=== PATIENT | male | born 1975 | race Caucasian/White ===

== ENCOUNTER 2017-08-10 09:09 | Observation (INO) | payer OTHER ==
[~2017-08-10] VITALS: Ht 175.3 cm; Wt 75.0 kg
[2017-08-10] VITALS (7 sets, daily range): BP systolic 111–159; BP diastolic 58–94; PULSE 64–81; RESP 16–18; TEMP 97.7–98.5; O2SAT 98–100
--- NOTE | 2017-08-10 09:59 | PD ---
HPI Chief Complaint: Eye Problems/Injury Time Seen by Provider: 09:30 Travel History International Travel<30 days: No Contact w/Intl Traveler<30days: No Traveled to known affect area: No History of Present Illness HPI 42-year-old male patient presents to the ER today for sudden left eye vision loss that had a curtain-like distribution that went down in the left eye and then a few minutes later reversed its course. He states that his physician is back to normal now but he does feel a little pressure in the left eye. He denies any eye pain, discharge, headaches, chest pains, shortness of breath, or any other issues. Modifying Factors: None Associated Signs & Symptoms: Painless, Left eye vision loss Risk Factors: None PFSH Past Medical History Medical History: Denies Significant Hx Tetanus Vaccination: Unknown Influenza Vaccination: No Past Surgical History Surgical History: No Previous Surgery Social History Alcohol Use: Yes Tobacco Use: Yes Substance Use: No Allergies-Medications (Allergen,Severity, Reaction): Coded Allergies: No Known Allergies (Unverified , 08/10/17) Reported Meds & Prescriptions Reported Meds & Active Scripts Active No Active Prescriptions or Reported Medications Review of Systems Except as stated in HPI: all other systems reviewed are Neg Physical Exam Narrative GENERAL: Pleasant well-developed middle age white male patient currently in no acute distress. Awake and oriented 3. SKIN: Focused skin assessment warm/dry. HEAD: Atraumatic. Normocephalic. EYES: Pupils equal and round. No scleral icterus. No injection or drainage. ENT: No nasal bleeding or discharge. Mucous membranes pink and moist. NECK: Trachea midline. No JVD. CARDIOVASCULAR: Regular rate and rhythm. No murmur appreciated. RESPIRATORY: No accessory muscle use. Clear to auscultation. Breath sounds equal bilaterally. GASTROINTESTINAL: Abdomen soft, non-tender, nondistended. Hepatic and splenic margins not palpable. MUSCULOSKELETAL: No obvious deformities. No clubbing. No cyanosis. No edema. NEUROLOGICAL: Awake and alert. No obvious cranial nerve deficits. Motor grossly within normal limits. Normal speech. No pronator drift. PSYCHIATRIC: Appropriate mood and affect; insight and judgment normal. Data Data Last Documented VS Vital Signs Date Time Temp Pulse Resp B/P (MAP) Pulse Ox O2 Delivery O2 Flow Rate FiO2 08/10/17 09:31 18 08/10/17 09:11 98.1 81 159/94 (115) 98 Orders Orders Fluorescein Strip ([id number]-J-Lijbvk A.T.) (08/10/17 10:00) Proparacaine 0.5% Opth Soln (Alcaine 0.5 (08/10/17 10:00) Electrocardiogram (08/10/17 10:00) Prothrombin Time / Inr (Pt) (08/10/17 10:00) Act Partial Throm Time (Ptt) (08/10/17 10:00) Complete Blood Count With Diff (08/10/17 10:00) Comprehensive Metabolic Panel (08/10/17 10:00) Ecg Monitoring (08/10/17 10:00) Iv Access Insert/Monitor (08/10/17 10:00) Oximetry (08/10/17 10:00) Sodium Chloride 0.9% Flush (Ns Flush) (08/10/17 10:00) C-Reactive Protein (Crp) (08/10/17 10:00) Westergren Sedimentation Rate (08/10/17 10:00) Ct Brain W/O Iv Contrast(Rout) (08/10/17 11:48) Admit Order (Ed Use Only) (08/10/17 11:48) Labs Laboratory Tests Test 08/10/17 10:20 White Blood Count 8.9 TH/MM3 Red Blood Count 4.81 MIL/MM3 Hemoglobin 15.1 GM/DL Hematocrit 43.7 % Mean Corpuscular Volume 90.8 FL Mean Corpuscular Hemoglobin 31.4 PG Mean Corpuscular Hemoglobin Concent 34.6 % Red Cell Distribution Width 13.5 % Platelet Count 233 TH/MM3 Mean Platelet Volume 7.2 FL Neutrophils (%) (Auto) 65.0 % Lymphocytes (%) (Auto) 25.4 % Monocytes (%) (Auto) 6.9 % Eosinophils (%) (Auto) 2.0 % Basophils (%) (Auto) 0.7 % Neutrophils # (Auto) 5.8 TH/MM3 Lymphocytes # (Auto) 2.3 TH/MM3 Monocytes # (Auto) 0.6 TH/MM3 Eosinophils # (Auto) 0.2 TH/MM3 Basophils # (Auto) 0.1 TH/MM3 CBC Comment DIFF FINAL Differential Comment Erythrocyte Sedimentation Rate 5 mm/hr Prothrombin Time 10.3 SEC Prothromb Time International Ratio 1.0 RATIO Activated Partial Thromboplast Time 24.7 SEC Blood Urea Nitrogen 15 MG/DL Creatinine 0.85 MG/DL Random Glucose 90 MG/DL Total Protein 8.0 GM/DL Albumin 4.3 GM/DL Calcium Level 9.3 MG/DL Alkaline Phosphatase 78 U/L Aspartate Amino Transf (AST/SGOT) 30 U/L Alanine Aminotransferase (ALT/SGPT) 47 U/L Total Bilirubin 0.3 MG/DL Sodium Level 139 MEQ/L Potassium Level 4.1 MEQ/L Chloride Level 107 MEQ/L Carbon Dioxide Level 26.5 MEQ/L Anion Gap 6 MEQ/L Estimat Glomerular Filtration Rate 100 ML/MIN C-Reactive Protein LESS THAN 0.29 MG/DL MDM Medical Decision Making Medical Screen Exam Complete: Yes Emergency Medical Condition: Yes Medical Record Reviewed: Yes Interpretation(s) EKG shows NSR, no ST elevation or depression, and no arrhythmias. No significant T-wave inversions. Laboratory Tests Test 08/10/17 10:20 Differential Diagnosis Painless left eye vision loss: Amaurosis fugax versus retinal bleeding Narrative Course EKG shows normal sinus rhythm. Lab work is otherwise unremarkable. Patient's vision is back to normal now. However, vision changes are concerning for amaurosis fugax and my plan would be to admit him for further evaluation. Case was discussed with Dr. Mayorga for admission. Diagnosis Primary Impression: Amaurosis fugax of left eye Admitting Information Admitting Physician Requests: Admit Scripts No Active Prescriptions or Reported Meds Christin Mora MD Aug 10, 2017 09:59
[2017-08-10] MEDS ORDERED: SODIUM CHLORIDE 0.9% FLUSH 10 ML FLUSH IVF PRN (10:00)
[2017-08-10] MEDS ORDERED: PROPARACAINE HCL 0.5% OPHT SOLN 15 ML BTL LEFT EYE ONE (10:00)
[2017-08-10] MEDS ORDERED: FLUORESCEIN SOD 1 MG STRIP LEFT EYE ONE (10:00)
[2017-08-10 10:35] LABS: AUTOMATED NEUTROPHIL # 5.8 TH/MM3 (1.8-7.7); BASOPHIL # 0.1 TH/MM3 (0-0.2); BASOPHIL % 0.7 % (0.0-2.0); EOSINOPHIL # 0.2 TH/MM3 (0-0.4); HEMATOCRIT 43.7 % (39.0-51.0); HEMOGLOBIN 15.1 GM/DL (13.0-17.0); LYMPH % 25.4 % (9.0-44.0); LYMPHOCYTE # 2.3 TH/MM3 (1.0-4.8); MEAN CELL VOLUME 90.8 FL (80.0-100.0); MEAN CORPUSCULAR HEMOGLOBIN 31.4 PG (27.0-34.0); MEAN CORPUSCULAR HGB CONC 34.6 % (32.0-36.0); MEAN PLATELET VOLUME 7.2 FL (7.0-11.0); MONO % 6.9 % (0.0-8.0); MONOCYTE # 0.6 TH/MM3 (0-0.9); PLATELET COUNT 233 TH/MM3 (150-450); RED BLOOD COUNT 4.81 MIL/MM3 (4.50-5.90); RED CELL DISTRIBUTION WIDTH 13.5 % (11.6-17.2); WHITE BLOOD COUNT 8.9 TH/MM3 (4.0-11.0)
[2017-08-10 10:44] LABS: PROTHROMBIN TIME - PATIENT 10.3 SEC (9.8-11.6)
[2017-08-10 10:50] LABS: ALBUMIN 4.3 GM/DL (3.4-5.0); ALT (GPT) 47 U/L (12-78); AST (GOT) 30 U/L (15-37); BICARBONATE 26.5 MEQ/L (21.0-32.0); BLOOD UREA NITROGEN 15 MG/DL (7-18); C-REACTIVE PROTEIN LESS THAN 0.29 MG/DL (0.00-0.30); CALCIUM 9.3 MG/DL (8.5-10.1); CHLORIDE 107 MEQ/L (98-107); CREATININE 0.85 MG/DL (0.60-1.30); GLOMERULAR FILTRATION RATE 100 ML/MIN (>89); GLUCOSE,RANDOM 90 MG/DL (74-106); SODIUM (NA) 139 MEQ/L (136-145)
[2017-08-10 10:54] LABS: ALKALINE PHOSPHATASE 78 U/L (45-117); TOTAL BILIRUBIN ADULT 0.3 MG/DL (0.2-1.0)
--- NOTE | 2017-08-10 12:27 | RADRPT ---
EXAM DATE/TIME: 08/10/2017 12:01 [facility] COMPARISON: No previous studies available for comparison. INDICATIONS : Episode of vision loss in left eye today. RADIATION DOSE: 56.77 CTDIvol (mGy) MEDICAL HISTORY : None SURGICAL HISTORY : None. ENCOUNTER: Initial ACUITY: 1 day PAIN SCALE: 6/10 LOCATION: Bilateral head TECHNIQUE: Multiple contiguous axial images were obtained of the head. Using automated exposure control and adj ustment of the mA and/or kV according to patient size, radiation dose was kept as low as reasonably a chievable to obtain optimal diagnostic quality images. DICOM format image data is available electro nically for review and comparison. FINDINGS: CEREBRUM: The ventricles are normal for age. No evidence of midline shift, mass lesion, hemorrhage or acute in farction. No extra-axial fluid collections are seen. POSTERIOR FOSSA: The cerebellum and brainstem are intact. The 4th ventricle is midline. The cerebellopontine angle i s unremarkable. EXTRACRANIAL: The visualized portion of the orbits is intact. SKULL: The calvaria is intact. No evidence of skull fracture. CONCLUSION: Negative for acute process. Marcin Arshad MD FACR on August 10, 2017 at 12:20 Board Certified Radiologist. This report was verified electronically.
[2017-08-10] MEDS ORDERED: NALOXONE HCL 0.4 MG/ML AMP IV PUSH PRN (15:45)
[2017-08-10] MEDS ORDERED: BISACODYL 10 MG SUPP RECTAL PRN (15:45)
[2017-08-10] MEDS ORDERED: MORPHINE SULFATE 2 MG/ML INJ IV PUSH PRN ×2 (15:45)
[2017-08-10] MEDS ORDERED: ENALAPRILAT 1.25 MG/ML VIAL IV PUSH PRN (15:45)
[2017-08-10] MEDS ORDERED: SENNOSIDES 8.6 MG TAB PO PRN (15:45)
[2017-08-10] MEDS ORDERED: ACETAMINOPHEN/HYDROcodone 325 MG/5 MG TAB PO PRN (15:45)
[2017-08-10] MEDS ORDERED: DEXTROSE 50% IN WATER 50 ML VIAL(D50) IV PUSH PRN (15:45)
[2017-08-10] MEDS ORDERED: ACETAMINOPHEN 325 MG TAB PO PRN ×2 (15:45)
[2017-08-10] MEDS ORDERED: ACETAMINOPHEN/HYDROcodone 325 MG/10 MG TAB PO PRN (15:45)
[2017-08-10] MEDS ORDERED: SODIUM CHLORIDE 0.9% FLUSH 10 ML FLUSH IV FLUSH PRN ×2 (15:45)
[2017-08-10] MEDS ORDERED: METOCLOPRAMIDE HCL 10 MG/2 ML VIAL IV PUSH PRN (15:45)
[2017-08-10] MEDS ORDERED: LACTULOSE SYRUP 20 GM/30 ML CUP PO PRN (15:45)
[2017-08-10] MEDS ORDERED: MAGNESIUM HYDROXIDE SUSP 30 ML CUP PO PRN (15:45)
[2017-08-10] MEDS ORDERED: GLUCAGON 1 MG/ML VIAL OTHER PRN (15:45)
[2017-08-10] MEDS ORDERED: ONDANSETRON HCL 4 MG/2 ML VIAL IVP PRN (15:45)
[2017-08-10] MEDS ORDERED: NICOTINE 14 MG/24 HR PATCH T-DERMAL ONE (16:30)
[2017-08-10] MEDS: INSULIN ASPART SUPPLEMENTAL SCALE SQ SCH ×2 (16:51→20:25)
[2017-08-10] MEDS: ASPIRIN 81 MG CHEW TAB PO SCH (16:51)
--- NOTE | 2017-08-10 16:52 | EKG ---
Date Performed: 08/10/2017 Time Performed: 10:12:24 PTAGE: 42 years EKG: Sinus rhythm POSSIBLE RIGHT VENTRICULAR CONDUCTION DELAY BORDERLINE ECG NO PREVIOUS TRACING DOCTOR: Marjan Holloway Interpretating Date/Time 08/10/2017 16:51:23
--- NOTE | 2017-08-10 16:53 | RADRPT ---
EXAM DATE/TIME: 08/10/2017 16:10 [facility] COMPARISON: No previous studies available for comparison. INDICATIONS : Left eye vision loss, resolved. MEDICAL HISTORY : None. SURGICAL HISTORY : None. ENCOUNTER: Initial ACUITY: 1 day PAIN SCORE: 0/10 LOCATION: cranial Please note a normal MRA of the brain does not entirely exclude the possibility of a small aneurysm, nor the possibility of distal intracranial vessel disease. TECHNIQUE: 3D time of flight MRA was performed. Source images, multiplanar STS MIP, and 3D volume MIP reconstru ctions were reviewed. FINDINGS: There is excellent visualization of the major intracranial arteries out to the second-order branch ve ssels. There is no evidence for aneurysm, vessel truncation or stenosis, and no evidence for vascula r malformation. CONCLUSION: Brain MRA within normal limits. Thomas Saenz MD on August 10, 2017 at 16:51 Board Certified Radiologist. This report was verified electronically.
[2017-08-10] MEDS ORDERED: ENOXAPARIN SODIUM 40 MG/0.4 ML SYRINGE SQ SCH (17:00)
--- NOTE | 2017-08-10 17:12 | HHI.HP ---
HPI Service [facility] Hospitalists Primary Care Physician No Primary Care Physician Admission Diagnosis left eye vision loss/amaurosis fugax Diagnoses: Chief Complaint: Vision loss left eye Travel History International Travel<30 Days: No Contact w/Intl Traveler <30 Da: No Traveled to Known Affected Are: No History of Present Illness This is a 42-year-old male without a significant past medical history who presents to [facility] ED with complaints of sudden visual loss in the left eye occurred earlier today while he was sitting on the toilet having a bowel movement. Patient describes it as a dark curtain like fog that started on the inner aspect of the left eye moving across to the outside of the eye and then resolved in the opposite direction about 45 seconds to a minute later. Patient denies any other associated symptoms. He denies any headache, slurred speech, dizziness, lightheadedness, palpitations, numbness/tingling, weakness, nausea, vomiting, chest pain or shortness of breath. His vision has remained normal and he just feels a little pressure on the inside corner of the left eye. He has never had an episode like this before. He denies any recent illness. He denies any drug use. He admits to tobacco use up to 2 packs per day. His only other complaint is some mild right-sided back pain that he thinks is due to lifting something incorrectly a few days ago. He is refusing a nicotine patch. Review of Systems Constitutional: DENIES: Diaphoretic episodes, Fatigue, Fever, Weight gain, Weight loss, Chills, Dizziness, Change in appetite Endocrine: DENIES: Heat/cold intolerance, Polydipsia, Polyuria, Polyphagia Eyes: COMPLAINS OF: Vision loss (left eye had an amaurosis fugax), DENIES: Blurred vision, Diplopia, Eye inflammation, Eye pain Ears, nose, mouth, throat: DENIES: Tinnitus, Hearing loss, Vertigo, Odynophagia Respiratory: DENIES: Apneas, Cough, Snoring Cardiovascular: DENIES: Chest pain, Palpitations Gastrointestinal: DENIES: Abdominal pain, Black stools Genitourinary: DENIES: Sexual dysfunction, Urinary frequency Musculoskeletal: DENIES: Joint pain, Muscle aches, Stiffness Integumentary: DENIES: Abnormal pigmentation, Nail changes Hematologic/lymphatic: DENIES: Bruising, Lymphadenopathy Immunologic/allergic: DENIES: Eczema, Urticaria Neurologic: DENIES: Abnormal gait, Headache, Localized weakness Psychiatric: DENIES: Anxiety, Confusion, Mood changes, Depression Except as stated in HPI: all other systems reviewed are Neg Past Family Social History Past Medical History Patient denies any past medical history Past Surgical History Patient denies any previous surgical history Reported Medications Patient does not take any medications at home Allergies: Coded Allergies: No Known Allergies (Unverified , 08/10/17) Active Ordered Medications Current Medications Medications (Trade) Dose Ordered Sig/Lara Route Start Time Stop Time Status Last Admin (NS Flush) 2 ml UNSCH PRN IV FLUSH 08/10/17 15:45 (NS Flush) 2 ml BID IV FLUSH 08/10/17 21:00 (Tylenol) 650 mg Q4H PRN PO 08/10/17 15:45 (Zofran Inj) 4 mg Q6H PRN IVP 08/10/17 15:45 (Reglan Inj) 5 mg Q6H PRN IV PUSH 08/10/17 15:45 (Lovenox Inj) 40 mg Q24H SQ 08/10/17 17:00 (Tylenol) 650 mg Q6H PRN PO 08/10/17 15:45 ([place] 5-325 Mg) 1 tab Q4H PRN PO 08/10/17 15:45 ([place] 10-325 Mg) 1 tab Q4H PRN PO 08/10/17 15:45 (Morphine Inj) 2 mg Q3H PRN IV PUSH 08/10/17 15:45 (Morphine Inj) 4 mg Q3H PRN IV PUSH 08/10/17 15:45 (Narcan Inj) 0.4 mg UNSCH PRN IV PUSH 08/10/17 15:45 (Jovita-Colace) 1 tab BID PO 08/10/17 21:00 (Milk Of Magnesia Liq) 30 ml Q12H PRN PO 08/10/17 15:45 (Senokot) 17.2 mg Q12H PRN PO 08/10/17 15:45 (Dulcolax Supp) 10 mg DAILY PRN RECTAL 08/10/17 15:45 (Lactulose Liq) 30 ml DAILY PRN PO 08/10/17 15:45 (Vasotec Inj) 1.25 mg Q4H PRN IV PUSH 08/10/17 15:45 (Aspirin Chew) 81 mg DAILY PO 08/10/17 16:00 (Lipitor) 10 mg HS PO 08/10/17 21:00 (NovoLOG SUPPLEMENTAL SCALE) 1 ACHS SQ 08/10/17 17:00 (D50w (Vial) Inj) 50 ml UNSCH PRN IV PUSH 08/10/17 15:45 (Glucagon Inj) 1 mg UNSCH PRN OTHER 08/10/17 15:45 (Habitrol 14 Mg Patch.24 Hr) 1 patch DAILY T-DERMAL 08/11/17 09:00 Miscellaneous Information 1 DAILY T-DERMAL 08/11/17 09:00 Family History Father, depression, suicide Social History He smokes up to 2 packs of cigarettes per day. He reports alcohol consumption of 6-12 beers one week out of the month. He denies any illicit drug use. 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 He is and lives with his . Physical Exam Vital Signs Vital Signs Date Time Temp Pulse Resp B/P (MAP) Pulse Ox O2 Delivery O2 Flow Rate FiO2 08/10/17 12:41 75 18 130/74 (92) 100 Room Air 08/10/17 12:41 75 18 130/74 (92) 100 Room Air 08/10/17 09:31 18 08/10/17 09:11 98.1 81 16 159/94 (115) 98 Physical Exam GENERAL: This is a well-nourished, well-developed patient, in no apparent distress. Awake and alert. Appears comfortable. Family is at the bedside. SKIN: No rashes, ecchymoses or lesions. Cool and dry. HEAD: Atraumatic. Normocephalic. No temporal or scalp tenderness. EYES: Pupils equal round and reactive. Extraocular motions intact. No scleral icterus. No injection or drainage. ENT: Nose without bleeding or purulent drainage. Throat without erythema, tonsillar hypertrophy or exudate. Uvula midline. Airway patent. NECK: Trachea midline. No lymphadenopathy. Supple, nontender, no meningeal signs. CARDIOVASCULAR: Regular rate and rhythm without murmurs, gallops, or rubs. S1 and S2 no S3 or S4 RESPIRATORY: Clear to auscultation. Breath sounds equal bilaterally. No wheezes , rales, or rhonchi. GASTROINTESTINAL: Abdomen soft, non-tender, nondistended. No hepato-splenomegaly , or palpable masses. No guarding. MUSCULOSKELETAL: Extremities without clubbing, cyanosis, or edema. No joint tenderness, effusion, or edema noted. No calf tenderness. NEUROLOGICAL: Awake and alert. Cranial nerves II through XII grossly intact. Motor and sensory grossly within normal limits. Five out of 5 muscle strength in all muscle groups. Normal speech. PSYCHIATRIC: Appropriate mood and affect. Normal judgement and insight. Laboratory Laboratory Tests Test 08/10/17 10:20 White Blood Count 8.9 Red Blood Count 4.81 Hemoglobin 15.1 Hematocrit 43.7 Mean Corpuscular Volume 90.8 Mean Corpuscular Hemoglobin 31.4 Mean Corpuscular Hemoglobin Concent 34.6 Red Cell Distribution Width 13.5 Platelet Count 233 Mean Platelet Volume 7.2 Neutrophils (%) (Auto) 65.0 Lymphocytes (%) (Auto) 25.4 Monocytes (%) (Auto) 6.9 Eosinophils (%) (Auto) 2.0 Basophils (%) (Auto) 0.7 Neutrophils # (Auto) 5.8 Lymphocytes # (Auto) 2.3 Monocytes # (Auto) 0.6 Eosinophils # (Auto) 0.2 Basophils # (Auto) 0.1 CBC Comment DIFF FINAL Differential Comment Erythrocyte Sedimentation Rate 5 Prothrombin Time 10.3 Prothromb Time International Ratio 1.0 Activated Partial Thromboplast Time 24.7 Blood Urea Nitrogen 15 Creatinine 0.85 Random Glucose 90 Total Protein 8.0 Albumin 4.3 Calcium Level 9.3 Alkaline Phosphatase 78 Aspartate Amino Transf (AST/SGOT) 30 Alanine Aminotransferase (ALT/SGPT) 47 Total Bilirubin 0.3 Sodium Level 139 Potassium Level 4.1 Chloride Level 107 Carbon Dioxide Level 26.5 Anion Gap 6 Estimat Glomerular Filtration Rate 100 C-Reactive Protein LESS THAN 0.29 Result Diagram: 08/10/17 1020 08/10/17 1020 Imaging Last Impressions Head CT 08/10/17 1148 Signed Impressions: Service Date/Time: Thursday, August 10, 2017 12:01 - CONCLUSION: Negative for acute process. Marcin Arshad MD FACR Caprini VTE Risk Assessment Caprini VTE Risk Assessment: No/Low Risk (score <= 1) Caprini Risk Assessment Model Point Value = 1 Point Value = 2 Point Value = 3 Point Value = 5 Age 41-60 Minor surgery BMI > 25 kg/m2 Swollen legs Varicose veins or History of unexplained or recurrent spontaneous Oral contraceptives or hormone replacement Sepsis (< 1 month) Serious lung disease, including pneumonia (< 1 month) Abnormal pulmonary function Acute myocardial infarction Congestive heart failure (< 1 month) History of inflammatory bowel disease Medical patient at bed rest Age 61-74 Arthroscopic surgery Major open surgery (> 45 min) Laparoscopic surgery (> 45 min) Malignancy Confined to bed (> 72 hours) Immobilizing plaster cast Central venous access Age >= 75 History of VTE Family history of VTE Factor V Leiden Prothrombin [id number] Lupus anticoagulant Anticardiolipin antibodies Elevated serum homocysteine Heparin-induced thrombocytopenia Other congenital or acquired thrombophilia Stroke (< 1 month) Elective arthroplasty Hip, pelvis, or leg fracture Acute spinal cord injury (< 1 month) Prophylaxis Regimen Total Risk Factor Score Risk Level Prophylaxis Regimen 0-1 Low Early ambulation 2 Moderate Order ONE of the following: *Sequential Compression Device (SCD) *Heparin 5000 units SQ BID 3-4 Higher Order ONE of the following medications: *Heparin 5000 units SQ TID *Enoxaparin/Lovenox 40 mg SQ daily (WT < 150 kg, CrCl > 30 mL/min) *Enoxaparin/Lovenox 30 mg SQ daily (WT < 150 kg, CrCl > 10-29 mL/min) *Enoxaparin/Lovenox 30 mg SQ BID (WT < 150 kg, CrCl > 30 mL/min) AND/OR *Sequential Compression Device (SCD) 5 or more Highest Order ONE of the following medications: *Heparin 5000 units SQ TID (Preferred with Epidurals) *Enoxaparin/Lovenox 40 mg SQ daily (WT < 150 kg, CrCl > 30 mL/min) *Enoxaparin/Lovenox 30 mg SQ daily (WT < 150 kg, CrCl > 10-29 mL/min) *Enoxaparin/Lovenox 30 mg SQ BID (WT < 150 kg, CrCl > 30 mL/min) AND *Sequential Compression Device (SCD) Assessment and Plan Assessment and Plan 42-year-old male without a significant past medical history who presents to [facility] ED with complaints of sudden visual loss in the left eye occurred earlier today while he was sitting on the toilet having a bowel movement. Amaurosis fugax left eye Possible TIA - ED physician contacted Dr. Isaac ophthalmology at [facility] who stated patient did not need to be evaluated by ophthalmology as inpatient/follow up as outpatient following discharge - CT head shows no acute process, images personally reviewed - ESR 5, CRP less than 0.29. PT/INR 10.3/1.0 - Consult Neurology, appreciate recommendations - Consult stroke navigator - Obtain fasting lipid panel and HgbA1c - Obtain carotid US - MRI/MRA brain ordered - 2D echocardiogram ordered - Neuro checks - ASA 81mg and Lipitor 10mg daily - monitor BS - continuous cardiac monitoring - cycle cardiac enzymes and EKGs - allow permissive HTN, IV Vasotec prn for SBP>220 - PT/OT/ST eval/tx - Seizure precautions Ongoing tobaccoism - advised on the importance of smoking cessation - patient offered nicotine patch but declined Start statin and baby aspirin DVT prophylaxis - Lovenox 40mg sq Code Status FULL CODE Discussed Condition With ED physician, patient, nursing staff and Dr. Magdaleno Attending Statement The exam, history, and the medical decision-making described in the above note were completed with the assistance of the mid-level provider. I reviewed and agree with the findings presented. I attest that I had a [id number] encounter with the patient on the same day, and personally performed and documented my assessment and findings in the medical record. Cynthia Kang Aug 10, 2017 17:12 Marcin Magdaleno DO Aug 10, 2017 17:31
--- NOTE | 2017-08-10 17:31 | RADRPT ---
EXAM DATE/TIME: 08/10/2017 16:10 [facility] COMPARISON: No previous studies available for comparison. INDICATIONS : Left eye vision loss, resloved. MEDICAL HISTORY : None. SURGICAL HISTORY : None. ENCOUNTER: Initial ACUITY: 1 day PAIN SCORE: 0/10 LOCATION: cranial TECHNIQUE: Multiplanar, multisequence MRI of the brain was performed without contrast. FINDINGS: CEREBRUM: The ventricles are normal for age. No evidence of midline shift, mass lesion, hemorrhage or acute in farction. No extraaxial fluid collections are seen. The pituitary gland and suprasellar cistern are normal in configuration. WHITE MATTER: No significant signal abnormalities are seen in the white matter. POSTERIOR FOSSA: The cerebellum and brainstem are intact. The 4th ventricle is midline. The cerebellopontine angle is unremarkable. The cerebellar tonsils are normal in position. DIFFUSION IMAGING: No focal areas of restricted diffusion are seen. No evidence of acute infarction. EXTRACRANIAL: The visualized portions of the orbits and paranasal sinuses are unremarkable. CONCLUSION: No acute intracranial findings. Thomas Saenz MD on August 10, 2017 at 17:28 Board Certified Radiologist. This report was verified electronically.
[2017-08-10 17:40] LABS: PROTHROMBIN TIME - PATIENT 10.4 SEC (9.8-11.6)
[2017-08-10 17:45] LABS: TROPONIN I LESS THAN 0.02 NG/ML (0.02-0.05)
--- NOTE | 2017-08-10 19:23 | RADRPT ---
EXAM DATE/TIME: 08/10/2017 17:51 [facility] COMPARISON: No previous studies available for comparison. INDICATIONS : Dizziness. MEDICAL HISTORY : C5-C6 hernia. Alcohol use. Loss of vision. Dizziness. SURGICAL HISTORY : None. ENCOUNTER: Initial ACUITY: 1 day PAIN SCORE: 2/10 LOCATION: Bilateral neck PEAK SYSTOLIC VELOCITIES (cm/sec): ICA/CCA RATIO: Right: 0.7 Left: 0.7 ICA: Right: 77.4 Left: 92.4 CCA: Right: 114.0 Left: 136.3 ECA: Right: 114.0 Left: 85.5 VERTEBRAL: Right: 69.8 antegrade Left: 58.1 antegrade Elevated flow velocities and ICA/CCA ratios have been found to correlate with increased degrees of vessel stenosis, calculated as percentage of diameter relative to a normal segment of distal ICA/CCA FINDINGS: RIGHT CAROTID: No significant stenosis is visualized. The waveforms are within normal limits. LEFT CAROTID: No significant stenosis is visualized. The waveforms are within normal limits. VERTEBRAL ARTERIES: Antegrade flow is seen in both vertebral arteries. MISCELLANEOUS: None. CONCLUSION: No evidence of hemodynamically significant carotid stenosis. Thomas Saenz MD on August 10, 2017 at 19:20 Board Certified Radiologist. This report was verified electronically.
[2017-08-10] MEDS: DOCUSATE SODIUM 50 MG/SENNA 8.6 MG TAB PO SCH (19:43)
[2017-08-10] MEDS ORDERED: SODIUM CHLORIDE 0.9% FLUSH 10 ML FLUSH IV FLUSH SCH (21:00)
[2017-08-10] MEDS ORDERED: ATORVASTATIN 10 MG TAB PO SCH (21:00)
[2017-08-10] MEDS: SODIUM CHLORIDE 0.9% FLUSH 10 ML FLUSH IV FLUSH SCH (21:22)
[2017-08-10 23:25] LABS: TROPONIN I LESS THAN 0.02 NG/ML (0.02-0.05)
[2017-08-11 00:04] VITALS: PULSE 60
[2017-08-11 04:02] VITALS: PULSE 63
[2017-08-11 04:04] VITALS: BP 98/56; PULSE 65; RESP 16; TEMP 97.8; O2SAT 98
[2017-08-11 05:16] LABS: AUTOMATED NEUTROPHIL # 3.9 TH/MM3 (1.8-7.7); BASOPHIL # 0.1 TH/MM3 (0-0.2); BASOPHIL % 0.8 % (0.0-2.0); EOSINOPHIL # 0.3 TH/MM3 (0-0.4); EOSINOPHIL % 3.2 % (0.0-4.0); HEMATOCRIT 40.6 % (39.0-51.0); HEMOGLOBIN 13.9 GM/DL (13.0-17.0); LYMPHOCYTE # 3.8 TH/MM3 (1.0-4.8); MEAN CELL VOLUME 91.4 FL (80.0-100.0); MEAN CORPUSCULAR HEMOGLOBIN 31.2 PG (27.0-34.0); MEAN CORPUSCULAR HGB CONC 34.2 % (32.0-36.0); MEAN PLATELET VOLUME 7.8 FL (7.0-11.0); MONO % 8.4 % (0.0-8.0); MONOCYTE # 0.7 TH/MM3 (0-0.9); NEUT % 44.6 % (16.0-70.0); PLATELET COUNT 218 TH/MM3 (150-450); RED BLOOD COUNT 4.45 MIL/MM3 (4.50-5.90); RED CELL DISTRIBUTION WIDTH 13.5 % (11.6-17.2); WHITE BLOOD COUNT 8.8 TH/MM3 (4.0-11.0)
[2017-08-11 05:37] LABS: ALBUMIN 3.5 GM/DL (3.4-5.0); ALT (GPT) 41 U/L (12-78); AST (GOT) 27 U/L (15-37); BICARBONATE 25.3 MEQ/L (21.0-32.0); BLOOD UREA NITROGEN 17 MG/DL (7-18); CHLORIDE 107 MEQ/L (98-107); CHOLESTEROL 208 MG/DL (120-200); CREATININE 0.88 MG/DL (0.60-1.30); GLOMERULAR FILTRATION RATE 96 ML/MIN (>89); GLUCOSE,RANDOM 93 MG/DL (74-106); MAGNESIUM 2.1 MG/DL (1.5-2.5); PHOSPHORUS 3.3 MG/DL (2.5-4.9); SODIUM (NA) 138 MEQ/L (136-145); TRIGLYCERIDES 125 MG/DL (42-150)
[2017-08-11 05:40] LABS: ALKALINE PHOSPHATASE 69 U/L (45-117); CHOLESTEROL/ HDL RATIO 7.17 RATIO; FREE T4 0.99 NG/DL (0.76-1.46); LDL CHOLESTEROL 154 MG/DL (0-99); TOTAL BILIRUBIN ADULT 0.3 MG/DL (0.2-1.0); TOTAL PROTEIN 6.7 GM/DL (6.4-8.2)
[2017-08-11 07:41] VITALS: PULSE 65
[2017-08-11] MEDS: INSULIN ASPART SUPPLEMENTAL SCALE SQ SCH (08:00)
--- NOTE | 2017-08-11 08:35 | OTSOAPIP ---
TIME SESSION COMPLETED: 827 TREATMENT TIME: 5 MINS. CHART REVIEWED. S: PAIN: DENIES ANY; REPORTS HE IS BACK TO NORMAL AND DOESN'T NEED ANY THERAPY. REPORTS HE CAME IN BECAUSE HE COULDN'T SEE OUT OF HIS LEFT EYE FOR 5 MINUTES AND NOW IS ABLE TO SEE FINE. O: SCREENING COMPLETED. ATTEMPTED TO SEE FOR OCCUPATIONAL THERAPY ASSESSMENT, HOWEVER PT ADAMANT ABOUT NOT NEEDED THERAPY. DISCUSSED PURPOSE OF OCCUPATIONAL THERAPY ASSESSMENT AND PT DECLINED SERVICES. EDUCATED ON SIGNS AND SYMPTOMS OF TIA/CEREBRAL VASCULAR ACCIDENT. SIGNIFICANT OTHER PRESENT IN ROOM. P: WILL SIGN OFF. Therapist: KANDACE GILBERT OT/L Signature on file
[2017-08-11 08:54] VITALS: BP 118/69; PULSE 64; RESP 20; TEMP 98.2; O2SAT 96
[2017-08-11] MEDS ORDERED: REMOVE OLD PATCH T-DERMAL SCH (09:00)
[2017-08-11] MEDS: DOCUSATE SODIUM 50 MG/SENNA 8.6 MG TAB PO SCH (09:00)
[2017-08-11] MEDS ORDERED: NICOTINE 14 MG/24 HR PATCH T-DERMAL SCH (09:00)
[2017-08-11] MEDS: SODIUM CHLORIDE 0.9% FLUSH 10 ML FLUSH IV FLUSH SCH (09:51)
[2017-08-11] MEDS: ASPIRIN 81 MG CHEW TAB PO SCH (09:51)
--- NOTE | 2017-08-11 10:02 | HHI.DCPOC ---
Discharge Care Plan Diagnosis: (1) Hyperlipidemia (2) Amaurosis fugax of left eye Goals to Promote Your Health * To prevent worsening of your condition and complications * To maintain your health at the optimal level Directions to Meet Your Goals Take your medications as prescribed Follow your dietary instruction Follow activity as directed Keep your appointments as scheduled Take your immunizations and boosters as scheduled If your symptoms worsen call your PCP, if no PCP go to Urgent Care Center or Emergency Room Smoking is Dangerous to Your Health. Avoid second hand smoke Call the 24-hour hour crisis hotline for domestic abuse at Katelynn Sampson MD Aug 11, 2017 10:02
--- NOTE | 2017-08-11 10:03 | HHI.PR ---
Subjective Remarks Patient states he is ready to go home. He hasn't had any visual changes since arrival to the emergency room. No headaches. No dizziness. Objective Vitals Vital Signs Date Time Temp Pulse Resp B/P (MAP) Pulse Ox O2 Delivery O2 Flow Rate FiO2 08/11/17 08:54 98.2 64 20 118/69 (85) 96 08/11/17 07:41 65 08/11/17 04:04 97.8 65 16 98/56 (70) 98 08/11/17 04:02 63 08/11/17 00:04 60 08/10/17 23:11 97.7 64 16 113/58 (76) 98 08/10/17 21:00 99 08/10/17 20:03 75 08/10/17 19:59 98.5 71 16 111/63 (79) 98 08/10/17 17:55 68 16 119/67 (84) 98 08/10/17 17:55 68 16 119/67 (84) 98 Room Air 08/10/17 12:41 75 18 130/74 (92) 100 Room Air 08/10/17 12:41 75 18 130/74 (92) 100 Room Air I/O 08/10/17 08/10/17 08/10/17 08/11/17 08/11/17 08/11/17 07:00 15:00 23:00 07:00 15:00 23:00 Intake Total 100 ml Balance 100 ml Intake Oral 100 ml Result Diagram: 08/11/17 0440 08/11/17439 Objective Remarks GENERAL: This is a well-nourished, well-developed patient, in no apparent distress. CARDIOVASCULAR: Normal rate and regular rhythm without murmurs, gallops, or rubs. RESPIRATORY: Good respiratory efforts. Breath sounds equal and clear to auscultation bilaterally. GASTROINTESTINAL: Abdomen soft, non-tender, non-distended. Normal active bowel sounds MUSCULOSKELETAL: Extremities without cyanosis, or edema. NEURO: Alert & Oriented x4 to person, place, time, situation. Moves all ext x4 PSYCH: Appropriate mood and affect. A/P Assessment and Plan 42-year-old male without a significant past medical history who presents to [facility] ED with complaints of sudden visual loss in the left eye occurred prior to arrival while he was having a bowel movement. Ophthalmology was consulted by ED physician would advise outpatient follow-up. Brain MRI/MRA negative. Carotid ultrasound unremarkable. The patient's symptoms completely resolved. He was observed and did not expense any recurrence of symptoms. This was probably amaurosis fugax. Regarding risk factor modifications. The patient was advised to stop using tobacco. He was advised on hyperlipidemia treatment including diet modification. He is not interested in changing his diet. Advised him to follow up outpatient with his PCP. Discharge Planning Discharge home in good condition Activity: Regular as tolerated Diet: Heart healthy Follow-up with: PCP Meds: No new medications. Katelynn Sampson MD Aug 11, 2017 10:03
--- NOTE | 2017-08-11 10:18 | PD.CONS ---
History of Present Illness Service Neurology Consult Requested By Primary Care Physician No Primary Care Physician History of Present Illness 42-year-old m admitted for possible tia. 1-2pp/day tob use x >20 years Review of Systems as above and admit hp Past Family Social History Past Medical History Patient denies any past medical history Past Surgical History Patient denies any previous surgical history Reported Medications Patient does not take any medications at home Allergies: Coded Allergies: No Known Allergies (Unverified , 08/10/17) Family History depression Social History He smokes up to 2 packs of cigarettes per day. few etoh/week Past Family Social History Allergies: Coded Allergies: No Known Allergies (Unverified , 08/10/17) Active Ordered Medications Current Medications Medications (Trade) Dose Ordered Sig/Lara Route Start Time Stop Time Status Last Admin (NS Flush) 2 ml UNSCH PRN IV FLUSH 08/10/17 15:45 (NS Flush) 2 ml BID IV FLUSH 08/10/17 21:00 08/11/17 09:51 (Tylenol) 650 mg Q4H PRN PO 08/10/17 15:45 (Zofran Inj) 4 mg Q6H PRN IVP 08/10/17 15:45 (Reglan Inj) 5 mg Q6H PRN IV PUSH 08/10/17 15:45 (Lovenox Inj) 40 mg Q24H SQ 08/10/17 17:00 08/10/17 16:51 (Tylenol) 650 mg Q6H PRN PO 08/10/17 15:45 ([place] 5-325 Mg) 1 tab Q4H PRN PO 08/10/17 15:45 ([place] 10-325 Mg) 1 tab Q4H PRN PO 08/10/17 15:45 (Morphine Inj) 2 mg Q3H PRN IV PUSH 08/10/17 15:45 (Morphine Inj) 4 mg Q3H PRN IV PUSH 08/10/17 15:45 (Narcan Inj) 0.4 mg UNSCH PRN IV PUSH 08/10/17 15:45 (Jovita-Colace) 1 tab BID PO 08/10/17 21:00 (Milk Of Magnesia Liq) 30 ml Q12H PRN PO 08/10/17 15:45 (Senokot) 17.2 mg Q12H PRN PO 08/10/17 15:45 (Dulcolax Supp) 10 mg DAILY PRN RECTAL 08/10/17 15:45 (Lactulose Liq) 30 ml DAILY PRN PO 08/10/17 15:45 (Vasotec Inj) 1.25 mg Q4H PRN IV PUSH 08/10/17 15:45 (Aspirin Chew) 81 mg DAILY PO 08/10/17 16:00 08/11/17 09:51 (Lipitor) 10 mg HS PO 08/10/17 21:00 08/10/17 21:22 (NovoLOG SUPPLEMENTAL SCALE) 1 ACHS SQ 08/10/17 17:00 (D50w (Vial) Inj) 50 ml UNSCH PRN IV PUSH 08/10/17 15:45 (Glucagon Inj) 1 mg UNSCH PRN OTHER 08/10/17 15:45 (Habitrol 14 Mg Patch.24 Hr) 1 patch DAILY T-DERMAL 08/11/17 09:00 Miscellaneous Information 1 DAILY T-DERMAL 08/11/17 09:00 Exam I&O / VS Vital Signs Date Time Temp Pulse Resp B/P (MAP) Pulse Ox O2 Delivery O2 Flow Rate FiO2 08/11/17 08:54 98.2 64 20 118/69 (85) 96 08/11/17 07:41 65 08/11/17 04:04 97.8 65 16 98/56 (70) 98 08/11/17 04:02 63 08/11/17 00:04 60 08/10/17 23:11 97.7 64 16 113/58 (76) 98 08/10/17 21:00 99 08/10/17 20:03 75 08/10/17 19:59 98.5 71 16 111/63 (79) 98 08/10/17 17:55 68 16 119/67 (84) 98 08/10/17 17:55 68 16 119/67 (84) 98 Room Air 08/10/17 12:41 75 18 130/74 (92) 100 Room Air 08/10/17 12:41 75 18 130/74 (92) 100 Room Air Jm Giraldo MD Aug 11, 2017 10:18
[2017-08-11 12:22] LABS: HEMOGLOBIN A1C 5.6 % (4.3-6.0)
--- NOTE | 2017-08-11 21:39 | EKG ---
Date Performed: 08/10/2017 Time Performed: 21:59:39 PTAGE: 42 years EKG: Sinus rhythm NORMAL ECG PREVIOUS TRACING : 08/10/2017 16.45 Compared to prior tracing no significant change DOCTOR: Marjan Holloway Interpretating Date/Time 08/11/2017 21:39:09
--- NOTE | 2017-08-12 09:10 | EKG ---
Date Performed: 08/10/2017 Time Performed: 16:45:06 PTAGE: 42 years EKG: Sinus rhythm NONSPECIFIC T-WAVE ABNORMALITY BORDERLINE ECG PREVIOUS TRACING : 08/10/2017 10.12 Compared to prior tracing no significant change DOCTOR: Marjan Holloway Interpretating Date/Time 08/12/2017 09:08:52
[2017-08-12 12:09] LABS: HEMOGLOBIN A1C 5.6 % (4.3-6.0)
== END 2017-08-11 10:37 | disposition home or self-care (01) ==
LOC: NEPD 09:09 → UNDOADMOB 11:50 → NEDA 11:50 → NEPHCDU 17:53
PROVIDERS: ADMIT Family Medicine; ATTEND Family Medicine
DX: G45.3 Amaurosis fugax (principal); H54.62 Unqualified visual loss, left eye, normal vision right eye; E78.5 Hyperlipidemia, unspecified; I10 Essential (primary) hypertension; F17.200 Nicotine dependence, unspecified, uncomplicated; Z79.82 Long term (current) use of aspirin
CPT/HCPCS: 70450; 70544; 70551; 80053; 80061; 82550; 82948; 83036; 83735; 84100; 84439; 84443; 84484; 85025; 85610; 85652; 85730; 86140; 92610; 93005; 93880; 94150; 96372; 99285; G0378; G8996; G8997; G8998; J1650